=== PATIENT | male | born 2000 | race Two or more races ===

== ENCOUNTER 2021-03-06 13:07 | Emergency (ER) | payer OTHER ==
[~2021-03-06] VITALS: Ht 167.6 cm; Wt 81.8 kg
[2021-03-06] MEDS ORDERED: PROPARACAINE HCL 0.5% 15 ML OPHTHALMIC SOLUTION OS ONE (16:45)
[2021-03-06] MEDS ORDERED: FLUORESCEIN SODIUM 1 MG STRIP OU ONE (16:45)
[2021-03-06] MEDS ORDERED: IBUPROFEN 800 MG TABLET PO ONE (16:45)
[2021-03-06 18:23] VITALS: BP 127/79
== END 2021-03-06 19:27 | disposition home or self-care (01) ==
LOC: EMS 13:07
DX: S05.02XA Injury of conjunctiva and corneal abrasion without foreign body, left eye, initial encounter (principal); X58.XXXA Exposure to other specified factors, initial encounter; Y93.89 Activity, other specified; Y92.89 Other specified places as the place of occurrence of the external cause; Y99.8 Other external cause status
CPT/HCPCS: 99283